=== PATIENT | female | born 1995 | race Caucasian/White ===

== ENCOUNTER 2019-03-30 23:19 | Emergency (ER) | payer SELFPAY ==
[~2019-03-30] VITALS: Ht 160 cm; Wt 56.7 kg
[2019-03-30 23:21] VITALS: BP 136/94; Ht 160 cm; Wt 56.7 kg
== END 2019-03-31 00:32 | disposition left against medical advice (07) ==
LOC: ED 23:19
DX: Z53.21 Procedure and treatment not carried out due to patient leaving prior to being seen by health care provider (principal)